=== PATIENT | female | born 1965 | race Caucasian/White ===

== ENCOUNTER 2017-02-22 14:48 | Emergency (ER) | payer OTHER ==
[~2017-02-22] VITALS: Ht 167.6 cm; Wt 70.8 kg
[~2017-02-22 14:48] MED LIST: DOXY100C2 PO; LORA1TAB PO; POTA20TA82 PO; PRAM0.255 PO; PRED50TA PO
[2017-02-22 15:15] VITALS: BP 116/82
--- NOTE | 2017-02-22 15:44 | RAD ---
4 views the left knee without comparison for trauma impacted a. Patient was hit on the medial aspect of the left knee. Medial pain. Findings: There is no fracture, dislocation, or acute osseous abnormality identified. No joint effusion is seen. No radiopaque foreign bodies are evident. No degenerative changes are noted. Impression: 1. Normal knee radiographs.
[2017-02-22] MEDS ORDERED: IBUP-1007 PO (16:13)
[2017-02-22] MEDS ORDERED: ONDA4TAB10 SL (16:14)
--- NOTE | 2017-02-22 16:14 | PHYS DOC ---
Past Medical History Past Medical History: Anxiety, Cancer, COPD, Other Additional Past Medical Histor: IRREGULAR RHYTHM, SKIN CA (LOWER LIP) Past Surgical History: Pacemaker, Other Additional Past Surgical Histo: Hernia, SKIN BIOPSY FROM LOWER LIP Alcohol Use: None Drug Use: None Adult General Chief Complaint Chief Complaint: KNEE INJURY HPI HPI Patient is a 51 year old female who presents with complaint of left knee injury. Patient states that she injured her knee yesterday after her grandson accidentally bumped into the medial aspect of the knee while it was bent as she was laying down. Patient states that she is having severe pain along the medial aspect of the left knee since the injury. Patient states that she has not been able to bear full weight on the knee due to pain. The patient has been using ice and has been resting the knee. The patient states to the amount of pain she was concerned that there may be something broken in her knee which is why she came to the emergency department today. Patient rates her pain as 5 out of 10 currently. Patient denies radiation of pain. Patient states that the pain worsens when she bends the knee and bears weight. Review of Systems Review of Systems Constitutional: Denies fever or chills [] Eyes: Denies change in visual acuity, redness, or eye pain [] HENT: Denies nasal congestion or sore throat [] Respiratory: Denies cough or shortness of breath [] Cardiovascular: Denies chest pain or edema [] GI: Denies abdominal pain, nausea, vomiting, bloody stools or diarrhea [] : Denies dysuria or hematuria [] Musculoskeletal: Left knee pain [] Integument: Denies rash or skin lesions [] Neurologic: Denies headache, focal weakness or sensory changes [] Allergies Allergies Allergies Coded Allergies Type Severity Reaction Last Updated Verified ciprofloxacin Allergy Intermediate 04/03/14 Yes codeine Allergy Intermediate 04/03/14 Yes cyclobenzaprine Allergy Intermediate 04/03/14 Yes diphenhydramine Allergy Intermediate 04/03/14 Yes hydrocodone Allergy Intermediate 04/03/14 Yes morphine Allergy Intermediate 04/03/14 Yes penicillin G procaine Allergy Intermediate 04/03/14 Yes sulfacetamide Allergy Intermediate 04/03/14 Yes tramadol Allergy Intermediate 04/03/14 Yes Physical Exam Physical Exam Constitutional: Alert, afebrile, appears in moderate discomfort. [] HENT: Normocephalic, atraumatic, bilateral external ears normal, oropharynx moist, no oral exudates, nose normal. [] Eyes: PERRLA, EOMI, conjunctiva normal, no discharge. [] Neck: Normal range of motion, no tenderness, supple, no stridor. [] Cardiovascular:Heart rate regular rhythm, no murmur [] Lungs & Thorax: Bilateral breath sounds clear to auscultation [] Abdomen: Bowel sounds normal, soft, no tenderness, no masses, no pulsatile masses. [] Skin: Warm, dry, no erythema, no rash. [] Back: No tenderness, no CVA tenderness. [] Extremities: No obvious deformity to left knee, medial joint space tenderness to palpation, decreased range of motion to flexion secondary to pain, full extension present, negative Valeriano test, pain with valgus stress to medial aspect of right knee. [] Neurologic: Alert and oriented X 3, normal motor function, normal sensory function, no focal deficits noted. [] Current Patient Data Vital Signs Vital Signs Date Time Temp Pulse Resp B/P (MAP) Pulse Ox O2 Delivery O2 Flow Rate FiO2 02/22/17 15:15 98.2 82 20 98 Room Air 98.2 EKG EKG Not performed [] Radiology/Procedures Radiology/Procedures [facility] [address] [facility] [place] [address] IMAGING REPORT Signed PATIENT: ELOINA CHANG ACCOUNT: [id number] : 1965 LOCATION: ER AGE: 51 SEX: F EXAM STATUS: REG ER ORD. PHYSICIAN: KEVIN DE LA CRUZ APRN REASON: pain PROCEDURE: KNEE LEFT 4V 4 views the left knee without comparison for trauma impacted a. Patient was hit on the medial aspect of the left knee. Medial pain. Findings: There is no fracture, dislocation, or acute osseous abnormality identified. No joint effusion is seen. No radiopaque foreign bodies are evident. No degenerative changes are noted. Impression: 1. Normal knee radiographs. DICTATED and SIGNED BY: CHUCK TURNER MD DATE: 02/22/17 2487 CC: CHAPO MOMIN MD; LISA PULIDO MD; KEVIN DE LA CRUZ APRN ~ [] Course & Med Decision Making Course & Med Decision Making Pertinent Labs and Imaging studies reviewed. (See chart for details) X-rays negative for fracture. Left knee placed in Amor wrap and patient provided with crutches to assist with ambulation. Recommended weightbearing as tolerated as well as RICE therapy at home. Advised follow-up in one week with Dr. Pulido and recommended return to emergency department for any worsening symptoms. Patient voiced understanding and in agreement with treatment plan. Dragon Disclaimer Dragon Disclaimer This electronic medical record was generated, in whole or in part, using a voice recognition dictation system. Departure Departure Impression: Primary Impression: Knee contusion Disposition: HOME, SELF-CARE Condition: IMPROVED Referrals: LISA PULIDO MD (PCP) KSENIA HAMILTON II, MD Patient Instructions: Knee Pain, RICE - Routine Care for Injuries Additional Instructions: Follow-up with your primary doctor in 1 week for reevaluation. Return to the emergency department for any worsening symptoms. Scripts Ondansetron (ZOFRAN ODT) 4 Mg Tab.rapdis 1 TAB SL Q8HRS Y for NAUSEA/VOMITING, #15 TAB Prov: CHAPO MOMIN MD 02/22/17 Ibuprofen (IBUPROFEN) 600 Mg Tablet 600 MG PO Q6HRS Y for INFLAMMATION, #20 TAB Prov: CHAPO MOMIN MD 02/22/17 Problem Qualifiers Primary Impression: Knee contusion Encounter type: initial encounter Laterality: left Qualified Codes: S80.02XA - Contusion of left knee, initial encounter CHAPO MOMIN MD Feb 22, 2017 16:14
[2017-02-22] MEDS ORDERED: IBUPROFEN 600 MG TABLET. PO ONE (16:15)
== END 2017-02-22 16:25 | disposition home or self-care (01) ==
LOC: ER 14:48
DX: S80.02XA Contusion of left knee, initial encounter (principal); J44.9 Chronic obstructive pulmonary disease, unspecified; Z95.0 Presence of cardiac pacemaker; Z88.1 Allergy status to other antibiotic agents; Z88.5 Allergy status to narcotic agent; Z88.8 Allergy status to other drugs, medicaments and biological substances; Z88.0 Allergy status to penicillin; Z88.2 Allergy status to sulfonamides; X58.XXXA Exposure to other specified factors, initial encounter; Y92.89 Other specified places as the place of occurrence of the external cause; Y93.89 Activity, other specified; Y99.8 Other external cause status
CPT/HCPCS: 73564; 99284

== ENCOUNTER 2017-04-21 22:33 | Emergency (ER) | payer OTHER ==
[~2017-04-21 22:33] MED LIST changes: +IBUP-1007 PO; +ONDA4TAB10 SL
[2017-04-21 22:40] VITALS: BP 133/91
--- NOTE | 2017-04-21 23:50 | PHYS DOC ---
Past Medical History Past Medical History: Anxiety, Cancer, COPD, Other Additional Past Medical Histor: IRREGULAR RHYTHM, SKIN CA (LOWER LIP) Past Surgical History: Pacemaker, Other Additional Past Surgical Histo: Hernia, SKIN BIOPSY FROM LOWER LIP Alcohol Use: None Drug Use: None Adult General Chief Complaint Chief Complaint: THUMB HPI HPI Patient is a 51 year old female who presents with mild left thumb pain that began today after she hyperextended her thumb tried to get up from the floor. Review of Systems Review of Systems Constitutional: Denies fever or chills [] Musculoskeletal: mild left thumb pain Integument: Denies rash or skin lesions [] Neurologic: Denies headache, focal weakness or sensory changes [] Allergies Allergies Allergies Coded Allergies Type Severity Reaction Last Updated Verified ciprofloxacin Allergy Intermediate 04/03/14 Yes codeine Allergy Intermediate 04/03/14 Yes cyclobenzaprine Allergy Intermediate 04/03/14 Yes diphenhydramine Allergy Intermediate 04/03/14 Yes hydrocodone Allergy Intermediate 04/03/14 Yes morphine Allergy Intermediate 04/03/14 Yes penicillin G procaine Allergy Intermediate 04/03/14 Yes sulfacetamide Allergy Intermediate 04/03/14 Yes tramadol Allergy Intermediate 04/03/14 Yes Physical Exam Physical Exam Constitutional: Well developed, well nourished, no acute distress, non-toxic appearance. [] Skin: Warm, dry, no erythema, no rash. [] Back: No tenderness, no CVA tenderness. [] Extremities: Left hand with no obvious deformity. Tenderness on palpation of the left thumb PIP joint. Full range of motion to the left thumb including flexion and extension. Adequate radius sensation to the left thumb. +2 left radial pulse. Cap refill less than 2 seconds the left thumb. Neurologic: Alert and oriented X 3, normal motor function, normal sensory function, no focal deficits noted. [] Psychologic: Affect normal, judgement normal, mood normal. [] Current Patient Data Vital Signs Vital Signs Date Time Temp Pulse Resp B/P (MAP) Pulse Ox O2 Delivery O2 Flow Rate FiO2 04/21/17 22:40 98.3 63 22 100 Room Air 98.3 EKG EKG [] Radiology/Procedures Radiology/Procedures [] Course & Med Decision Making Course & Med Decision Making Pertinent Labs and Imaging studies reviewed. (See chart for details) Patient is in the ED with left thumb pain after hyperflexing it. Left lumbar x- rays interpreted by Dr. Escobedo were negative for any acute findings. Splint provided to the left thumb. Neurovascular exam is intact. Follow-up with orthopedic doctor in one week if pain continues. Ice elevation encouraged. OTC pain relievers recommended. Dragon Disclaimer Dragon Disclaimer This electronic medical record was generated, in whole or in part, using a voice recognition dictation system. Departure Departure Impression: Primary Impression: Left thumb sprain Disposition: HOME, SELF-CARE Condition: STABLE Referrals: LISA PULIDO MD (PCP) KSENIA HAMILTON II, MD Follow up next week if pain continues Patient Instructions: Finger Sprain, [id number] Additional Instructions: You were seen for left thumb sprain. Ice elevate the extremity. Wear the provided splint as tolerated. You can take any pain medicines [id number]. Your left thumb x-rays were negative for any acute findings. Follow-up with the provided orthopedic doctor on Monday or any time next week if pain continues. Problem Qualifiers Primary Impression: Left thumb sprain Encounter type: initial encounter Sprain of finger site: interphalangeal joint Qualified Codes: S63.622A - Sprain of interphalangeal joint of left thumb, initial encounter KEVIN DE LA CRUZ APRN Apr 21, 2017 23:50
--- NOTE | 2017-04-22 08:25 | RAD ---
Three-view study of the left thumb History: Left thumb pain Findings: No acute fracture or dislocation or osteolytic process is seen. IMPRESSION: No acute fracture.
== END 2017-04-22 00:20 | disposition home or self-care (01) ==
LOC: ER 22:33
DX: S63.622A Sprain of interphalangeal joint of left thumb, initial encounter (principal); J44.9 Chronic obstructive pulmonary disease, unspecified; Z88.1 Allergy status to other antibiotic agents; Z88.5 Allergy status to narcotic agent; Z88.0 Allergy status to penicillin; Z88.8 Allergy status to other drugs, medicaments and biological substances; Z88.2 Allergy status to sulfonamides; X50.9XXA Other and unspecified overexertion or strenuous movements or postures, initial encounter; Y93.89 Activity, other specified; Y99.8 Other external cause status; Y92.89 Other specified places as the place of occurrence of the external cause
CPT/HCPCS: 29125; 73140; 99284-25

== ENCOUNTER → 2018-06-13 | Outpatient (CLI) | payer OTHER ==
--- NOTE | 2018-06-13 17:04 | KCIC ---
Bilateral digital screening mammograms: Reason for examination: Routine screening. Comparison is made to previous studies dated back to 07/15/2013. Interpretation was made with the benefit of CAD. A pacemaker remains present on the left. The skin and nipples show no abnormalities. No abnormal axillary lymph nodes are seen. The breast parenchyma is heterogeneously dense. (Breast density: Category C.) There continues to be a small nodule consistent with an intramammary lymph node in the 2:00 position posteriorly in the left breast. There are no new dominant masses, suspicious calcifications or architectural distortion. Impression: No evidence of malignancy. Recommend routine screening. Your patient's mammogram demonstrates that she has dense breast tissue (breast density category C or D), which could hide abnormalities, and if she has other risk factors for breast cancer that have been identified, she might benefit from supplemental screening tests that may be suggested by you as her ordering physician. Dense breast tissue, in and of itself, is a relatively common condition. Therefore, this information is not provided to cause undue concern, but rather to raise your awareness and to promote discussion with your patient regarding the presence of other risk factors, in addition to dense breast tissue. Your patient's mammography results will be sent to her. BI-RAD Category 2: Benign. "Our facility is accredited by the [employer] Mammography Program." This patient's information has been entered into a reminder system for the patient to be notified with the results of her examination and a target date for the next mammogram. Electronically signed by: Katia Dumont MD (06/13/2018 5:00 PM) [facility]
== END | disposition home or self-care (01) ==
LOC: KCIC MAMMO 15:06
PROVIDERS: ATTEND Family Medicine
DX: Z12.31 Encounter for screening mammogram for malignant neoplasm of breast (principal)
CPT/HCPCS: 77067

== ENCOUNTER 2018-09-30 17:19 | Emergency (ER) | payer OTHER ==
[~2018-09-30] VITALS: Ht 172.7 cm; Wt 70.8 kg
--- NOTE | 2018-09-30 18:14 | PHYS DOC ---
Past Medical History Past Medical History: Anxiety, Cancer, COPD, Hypothyroid, Other Additional Past Medical Histor: IRREGULAR RHYTHM, SKIN CA (LOWER LIP) Past Surgical History: Pacemaker, Other Additional Past Surgical Histo: Hernia, SKIN BIOPSY FROM LOWER LIP Smoking: Cigarettes Alcohol Use: None Drug Use: None Adult General Chief Complaint Chief Complaint: FATIGUE HPI HPI Patient is a 53 year old female who presents with fatigue for the past week or so. Worse today. Can only walk for a half hour at a time. No issues climbing stairs. No chest pain. Feels a cramping sensation in the front her thighs. Gets better with rest. Patient is concerned about her thyroid because her primary care physician recently increased her thyroid supplementation medication dosage. No chest pain, no palpitations, no fevers.[] Review of Systems Review of Systems Constitutional: Denies fever or chills [] Eyes: Denies change in visual acuity, redness, or eye pain [] HENT: Denies nasal congestion or sore throat [] Respiratory: Denies cough or shortness of breath [] Cardiovascular: No chest pain or palpitations[] GI: Denies abdominal pain, nausea, vomiting, bloody stools or diarrhea [] : Denies dysuria or hematuria [] Musculoskeletal: Denies back pain or joint pain [] Integument: Denies rash or skin lesions [] Neurologic: Denies headache, focal weakness or sensory changes [] Endocrine: Denies polyuria or polydipsia [] All other systems were reviewed and found to be within normal limits, except as documented in this note. Allergies Allergies Allergies Coded Allergies Type Severity Reaction Last Updated Verified ciprofloxacin Allergy Intermediate 04/03/14 Yes codeine Allergy Intermediate 04/03/14 Yes cyclobenzaprine Allergy Intermediate 04/03/14 Yes diphenhydramine Allergy Intermediate 04/03/14 Yes hydrocodone Allergy Intermediate 04/03/14 Yes morphine Allergy Intermediate 04/03/14 Yes penicillin G procaine Allergy Intermediate 04/03/14 Yes sulfacetamide Allergy Intermediate 04/03/14 Yes tramadol Allergy Intermediate 04/03/14 Yes Physical Exam Physical Exam Constitutional: Well developed, well nourished, no acute distress, non-toxic appearance. [] HENT: Normocephalic, atraumatic, bilateral external ears normal, oropharynx moist, no oral exudates, nose normal. [] Eyes: PERRLA, EOMI, conjunctiva normal, no discharge. [] Neck: Normal range of motion, no tenderness, supple, no stridor. [] Cardiovascular:Heart rate regular rhythm, no murmur [] Lungs & Thorax: Bilateral breath sounds clear to auscultation [] Abdomen: Bowel sounds normal, soft, no tenderness, no masses, no pulsatile masses. [] Skin: Warm, dry, no erythema, no rash. [] Back: No tenderness, no CVA tenderness. [] Extremities: No tenderness, no cyanosis, no clubbing, ROM intact, no edema. [] Neurologic: Alert and oriented X 3, normal motor function, normal sensory function, no focal deficits noted. [] Psychologic: Affect normal, judgement normal, mood normal. [] Current Patient Data Vital Signs Vital Signs Date Time Temp Pulse Resp B/P (MAP) Pulse Ox O2 Delivery O2 Flow Rate FiO2 09/30/18 17:57 98.4 93 20 158/93 (114) 98 Room Air 98.4 Lab Values Laboratory Tests Test 09/30/18 18:15 White Blood Count 10.4 x10^3/uL (4.0-11.0) Red Blood Count 4.07 x10^6/uL (3.50-5.40) Hemoglobin 13.2 g/dL (12.0-15.5) Hematocrit 39.7 % (36.0-47.0) Mean Corpuscular Volume 98 fL (79-100) Mean Corpuscular Hemoglobin 32 pg (25-35) Mean Corpuscular Hemoglobin Concent 33 g/dL (31-37) Red Cell Distribution Width 13.5 % (11.5-14.5) Platelet Count 295 x10^3/uL (140-400) Neutrophils (%) (Auto) 50 % (31-73) Lymphocytes (%) (Auto) 43 % (24-48) Monocytes (%) (Auto) 5 % (0-9) Eosinophils (%) (Auto) 1 % (0-3) Basophils (%) (Auto) 1 % (0-3) Neutrophils # (Auto) 5.2 x10^3uL (1.8-7.7) Lymphocytes # (Auto) 4.4 x10^3/uL (1.0-4.8) Monocytes # (Auto) 0.5 x10^3/uL (0.0-1.1) Eosinophils # (Auto) 0.1 x10^3/uL (0.0-0.7) Basophils # (Auto) 0.1 x10^3/uL (0.0-0.2) Prothrombin Time 12.2 SEC (11.7-14.0) Prothrombin Time INR 0.9 (0.8-1.1) Urine Collection Type Unknown Urine Color Yellow Urine Clarity Clear Urine pH 6.5 Urine Specific [place] <=1.005 Urine Protein Negative mg/dL (NEG-TRACE) Urine Glucose (UA) Negative mg/dL (NEG) Urine Ketones (Stick) Negative mg/dL (NEG) Urine Blood Moderate (NEG) Urine Nitrite Negative (NEG) Urine Bilirubin Negative (NEG) Urine Urobilinogen Dipstick 0.2 mg/dL (0.2 mg/dL) Urine Leukocyte Esterase Negative (NEG) Urine RBC 3-5 /HPF (0-2) Urine WBC 0 /HPF (0-4) Urine Squamous Epithelial Cells Occ /LPF Urine Bacteria 0 /HPF (0-FEW) Sodium Level 142 mmol/L (136-145) Potassium Level 3.1 mmol/L (3.5-5.1) L Chloride Level 103 mmol/L (98-107) Carbon Dioxide Level 27 mmol/L (21-32) Anion Gap 12 (6-14) Blood Urea Nitrogen 4 mg/dL (7-20) L Creatinine 0.9 mg/dL (0.6-1.0) Estimated GFR (Cockcroft-Gault) 65.5 BUN/Creatinine Ratio 4 (6-20) L Glucose Level 101 mg/dL (70-99) H Calcium Level 8.9 mg/dL (8.5-10.1) Magnesium Level 1.8 mg/dL (1.8-2.4) Total Bilirubin 0.2 mg/dL (0.2-1.0) Aspartate Amino Transferase (AST) 40 U/L (15-37) H Alanine Aminotransferase (ALT) 19 U/L (14-59) Alkaline Phosphatase 82 U/L (46-116) Troponin I Quantitative < 0.017 ng/mL (0.000-0.055) IF-Ayf-B-Type Natriuretic Peptide 218 pg/mL (0-124) H Total Protein 7.8 g/dL (6.4-8.2) Albumin 3.7 g/dL (3.4-5.0) Albumin/Globulin Ratio 0.9 (1.0-1.7) L Thyroid Stimulating Hormone (TSH) 0.074 uIU/mL (0.358-3.74) L Laboratory Tests 09/30/18 18:15 Laboratory Tests 09/30/18 18:15 EKG EKG EKG shows a sinus rhythm, 96 bpm, rightward axis at 98, QTC of 456 ms, VA interval 240 ms prolonged, no ST elevations, no acute changes when compared with EKG of 04/04/2016, interpreted by me at 1822[] Radiology/Procedures Radiology/Procedures TECHNIQUE: Portable upright frontal view of the chest is provided. FINDINGS: The cardiomediastinal silhouette is within normal limits. Left chest wall cardiac device is identified with leads projecting over the right atrium and right ventricle. There is trace left pleural effusion. Lungs are otherwise clear. No pulmonary vascular congestion or pneumothorax. IMPRESSION: Trace left pleural effusion versus pleural thickening which does not seem significantly changed dating back to April 04, 2016 favoring pleural thickening.[] Course & Med Decision Making Course & Med Decision Making Pertinent Labs and Imaging studies reviewed. (See chart for details) ED course: Patient arrived, was placed in bed, and tolerated exam well. Patient remained in stable condition, discussed lab findings and imaging findings as they were completed with the patient. She voiced understanding. All questions were answered. Medical decision making: This does not appear to be an acute coronary syndrome, no evidence of volume overload, no pneumonia, no anemia, no urinary tract infection, patient's TSH is noted to be decreased however this can be better addressed by her primary care physician on a long-term basis especially in light of recent adjustments to her thyroid medication.[] Dragon Disclaimer Dragon Disclaimer This electronic medical record was generated, in whole or in part, using a voice recognition dictation system. Departure Departure Impression: Primary Impression: Fatigue Disposition: 01 HOME, SELF-CARE Condition: IMPROVED Referrals: LISA PULIDO MD (PCP) Follow-up in 2 days Patient Instructions: Fatigue Additional Instructions: Follow-up with your regular doctor in 2 days. Your TSH level was low indicating that your primary care physician may need to adjust your thyroid medication. Drink plenty of fluids. Return to the ER if any chest pain, difficulty breathing , or any other concerns. Problem Qualifiers Primary Impression: Fatigue Fatigue type: unspecified Qualified Codes: R53.83 - Other fatigue SHEREE LUNDBERG DO Sep 30, 2018 18:14
[2018-09-30 18:32] LABS: BASO # 0.1 x10^3/uL (0.0-0.2); BASO % 1 % (0-3); BILIRUBIN,URINE NEGATIVE (NEG); CLARITY,URINE CLEAR; COLOR,URINE YELLOW; EOS # 0.1 x10^3/uL (0.0-0.7); EOS % 1 % (0-3); HEMATOCRIT 39.7 % (36.0-47.0); HEMOGLOBIN 13.2 g/dL (12.0-15.5); LYMPH # 4.4 x10^3/uL (1.0-4.8); LYMPH % 43 % (24-48); MEAN CORPUSCULAR HEMOGLOBIN 32 pg (25-35); MEAN CORPUSCULAR HGB CONC 33 g/dL (31-37); MEAN CORPUSCULAR VOLUME 98 fL (79-100); MONO # 0.5 x10^3/uL (0.0-1.1); MONO % 5 % (0-9); NEUT # 5.2 x10^3uL (1.8-7.7); NEUT % 50 % (31-73); NITRITE,URINE NEGATIVE (NEG); PH,URINE 6.5; PLATELET COUNT 295 x10^3/uL (140-400); PROTEIN,URINE NEGATIVE (NEG-TRACE); RED BLOOD COUNT 4.07 x10^6/uL (3.50-5.40); RED CELL DISTRIBUTION WIDTH 13.5 % (11.5-14.5); UROBILINOGEN,URINE 0.2 mg/dL (0.2 mg/dL); WHITE BLOOD COUNT 10.4 x10^3/uL (4.0-11.0)
[2018-09-30 18:41] LABS: BACTERIA,URINE 0 /HPF (0-FEW); CALCIUM 8.9 mg/dL (8.5-10.1); CREATININE 0.9 mg/dL (0.6-1.0); GFR 65.5; POTASSIUM 3.1 mmol/L (3.5-5.1); SQUAMOUS EPITHELIAL CELL,UR OCC /LPF; WBC,URINE 0 /HPF (0-4)
[2018-09-30 18:42] LABS: PROTHROMBIN TIME PATIENT 12.2 SEC (11.7-14.0)
--- NOTE | 2018-09-30 18:47 | RAD ---
Chest radiograph 09/30/2018 6:09 PM INDICATION: Fatigue COMPARISON: Chest radiograph April 04, 2016 TECHNIQUE: Portable upright frontal view of the chest is provided. FINDINGS: The cardiomediastinal silhouette is within normal limits. Left chest wall cardiac device is identified with leads projecting over the right atrium and right ventricle. There is trace left pleural effusion. Lungs are otherwise clear. No pulmonary vascular congestion or pneumothorax. IMPRESSION: Trace left pleural effusion versus pleural thickening which does not seem significantly changed dating back to April 04, 2016 favoring pleural thickening. Electronically signed by: Kandy Stack MD (09/30/2018 6:44 PM) [facility]
[2018-09-30 18:49] LABS: ALBUMIN 3.7 g/dL (3.4-5.0); ALBUMIN/GLOBULIN RATIO 0.9 (1.0-1.7); MAGNESIUM 1.8 mg/dL (1.8-2.4); TOTAL BILIRUBIN 0.2 mg/dL (0.2-1.0); TOTAL PROTEIN 7.8 g/dL (6.4-8.2)
[2018-09-30 19:00] VITALS: BP 124/72
--- NOTE | 2018-10-01 09:04 | EKG ---
[facility] [address] [place] [address] Test Date: 2018-09-30 Test Time: 18:18:13 Pat Name: ELOINA CHANG Department: Room: Gender: F [employer] Sales Representative: RHEA : 1965 Requested By: SHEREE LUNDBERG Order Number: [id number] Reading MD: Alejandro Solis MD Measurements Intervals Lester Rate: 96 P: 56 IN: 240 QRS: 98 QRSD: 76 T: 0 QT: 356 QTc: 456 Interpretive Statements SINUS RHYTHM VERSUS ATRIAL PACED RHYTHM NON-SPECIFIC ST/T CHANGES Electronically Signed On 10-01-2018 10:58:55 CDT by Alejandro Solis MD
== END 2018-09-30 19:18 | disposition home or self-care (01) ==
LOC: ER 17:19
DX: R53.83 Other fatigue (principal); E03.9 Hypothyroidism, unspecified; J44.9 Chronic obstructive pulmonary disease, unspecified; F17.210 Nicotine dependence, cigarettes, uncomplicated; Z95.0 Presence of cardiac pacemaker; Z88.1 Allergy status to other antibiotic agents; Z88.0 Allergy status to penicillin; Z88.2 Allergy status to sulfonamides; Z88.5 Allergy status to narcotic agent; Z88.6 Allergy status to analgesic agent; Z88.8 Allergy status to other drugs, medicaments and biological substances
CPT/HCPCS: 36415; 71045; 80053; 81001; 83735; 83880; 84443; 84484; 85025; 85610; 93005; 99284-25